=== PATIENT | female | born 1940 | race Caucasian/White ===

== ENCOUNTER → 2017-12-28 | Outpatient (CLI) | payer MEDICARE ==
[~2017-12-28] MED LIST: ASPI-816 PO; ATEN-1 PO; BACDS PO; BENZ200C38 PO; CEFU250 PO; FAMO-64 PO; GLY5 PO; HYDR-4309 PO; IBUP600T22 PO; LEVO50TA80 PO; LEVO750T25 PO; LISI-368 PO; LOM PO; LOR5/325 PO; LOR7.5/325 PO; METF-420 PO; METO-222 PO; METO-231 PO; NAP500 PO; PIOG45TA3 PO; RAN150 PO; SIMV-42 PO
--- NOTE | 2017-12-29 08:54 | RADIOLOGY IMAGING REPORT ---
FACILITY: [facility] PATIENT NAME: ROGERIO CORTES : [id number] MR: [id number] V: [id number] EXAM DATE: ORDERING PHYSICIAN: ANAMARIA BURKETT TECHNOLOGIST: Patsy Ramirez PROCEDURE:BILATERAL DIGITAL SCREENING MAMMOGRAM WITH CAD ASSISTED INTERPRETATION & 3D TOMOSYNTHESIS COMPARISON:None. INDICATIONS:screening FINDINGS: A small amount of fibroglandular tissue is seen throughout the breasts. The parenchymal pattern has remained stable allowing for difference in mammographic technique & patient positioning. There is no evidence of malignant appearing mass, malignant appearing calcifications or other secondary sign of malignancy in either breast. DIAGNOSTIC CATEGORY 1--NEGATIVE. RECOMMENDATIONS: ROUTINE MAMMOGRAM AND CLINICAL EVALUATION. IMPRESSION: BIRADS 1: Negative No significant abnormality is seen Dictated by: Jennifer Fernandez M.D. on 12/28/2017 at 16:27 Transcribed by: ADRIANA on 12/29/2017 at 8:23 Approved by: Jennifer Fernandez M.D. on 12/29/2017 at 8:53 [facility]
== END ==
LOC: MAMO 01:06
PROVIDERS: ATTEND Family Medicine
DX: Z12.31 Encounter for screening mammogram for malignant neoplasm of breast (principal)
CPT/HCPCS: 77063; 77067

== ENCOUNTER → 2018-01-13 | Outpatient (CLI) | payer MEDICARE ==
--- NOTE | 2018-01-13 16:46 | RADIOLOGY IMAGING REPORT ---
FACILITY: [facility] PATIENT NAME: Kate Almanzar : 1940 MR: [id number] V: [id number] EXAM DATE: ORDERING PHYSICIAN: BONNIE FATIMA TECHNOLOGIST: Location: [facility] Patient: Kate Almanzar : 1940 Visit/Account:[id number] Date of Sevice: 01/13/2018 Right lower extremity venous Doppler duplex ultrasound scan. HISTORY: Right leg swelling. COMPARISON: None. A color flow Doppler duplex ultrasound examination with spectral analysis was performed on the lower extremity. The common femoral vein, superficial femoral vein, and popliteal vein are normal. These ve ssels compress and augment normally. The upper portions of the trifurcation veins are unremarkable. P ortions of the deep veins of the calf are obscured. No intraluminal filling defects are identified to suggest acute thrombus in the deep venous system. Note that Doppler ultrasound is somewhat insensiti ve below the knee. A venous reflux study was not performed at this time. Edema is present in the sof t tissues of the right calf. IMPRESSION: Soft tissue edema. Otherwise negative for acute deep vein thrombosis. Report Dictated By: Baltazar Sandra MD at 01/13/2018 4:40 PM Report E-Signed By: Baltazar Sandra MD at 01/13/2018 4:43 PM WSN:[email or web address]
== END ==
LOC: US 11:22
PROVIDERS: ATTEND Internal Medicine Cardiovascular Disease
DX: R60.0 Localized edema (principal)

== ENCOUNTER → 2018-01-25 | Outpatient (CLI) | payer MEDICARE ==
--- NOTE | 2018-01-26 08:38 | RT STRESS TEST REPORT ---
FACILITY: [facility] [place] PATIENT NAME: ROGERIO CORTES : [id number] MR: [id number] V: [id number] EXAM DATE: ORDERING PHYSICIAN: ANAMARIA BURKETT TECHNOLOGIST: Juan M Acquisition Time: 2018-01-25 07:09:33 Total Exercise Time: 00:07:18 Test Indications: Syncope Medications: aspirin atorvastatin glimeplride levothyroxine lisinopriil omeprazole metformin metoprolol pramipexole pioglitazone Protocol: DOBUTAMINE Max HR: 136 BPM 93% of Pred: 145 BPM Max BP: 218/077 mmHG Max Work Load: 1.0 METS see report Confirmed by DILAN PARKINSON ([id number]) on 01/26/2018 8:37:59 AM Referred By: Anamaria Burkett Overread By: DILAN PARKINSON
--- NOTE | 2018-01-27 09:19 | RADIOLOGY IMAGING REPORT ---
[place] [facility] [place] NAME: ROGERIO CORTES : [id number] MR: [id number] V: [id number] EXAM DATE: ORDERING PHYSICIAN: BONNIE FATIMA TECHNOLOGIST: Josefina Celestin PROCEDURE: STRESS ECHOCARDIOGRAPHY COMPARISON: None. INDICATIONS: PAROXYSMAL ATRIAL FIBRILATION FINDINGS: After informed consent the patient was exercised using the Dobutamine protocol. She was informed of all of the risks & benefits including arrhythmias. Baseline EKG showed normal sinus rhythm. With exercise & Dobutamine no ST segment changes were noted. The patient had no complaints of any chest pains. The heartrate increased to 93% of predicted maximum heart rate. Blood pressure was elevated starting off at 202/95. No ST segment changes of ischemia. ECHOCARDIOGRAPH PORTION OF THE STRESS TEST: At rest the patient had normal left ventricular ejection fraction of approximately 60% with mild to moderate amount of mitral insufficiency & a trace of tricuspid, aortic & pulmonic insufficiency. No stenosis of any of the valves was noted. Estimated right ventricular systolic pressure was approximately 48mm Hg. Doppler examination of the mitral valve in diastole does reveal a normal pattern but there was reversal with Valsalva maneuver suggesting decreased diastolic function. CONCLUSION: 1. Normal hyperdynamic response to Dobutamine exercise with no left ventricular segmental wall motion abnormalities & low probability of ischemia. 2. Mild to moderate amount of mitral insufficiency. Trace of tricuspid, aortic & pulmonic insufficiency. Estimated right ventricular pressures were 48mm Hg indicating moderate pulmonary hypertension & increased right ventricular pressures. no stenosis of any of the valves. 3. A Grade 2 moderate decrease in diastolic function. 4. Increased blood pressure that started 202/95. Dictated by: Rita Mcleod M.D. on 01/26/2018 at 8:11 Transcribed by: OJ on 01/27/2018 at 7:31 Approved by: Rita Mcleod M.D. on 01/27/2018 at 9:17 [facility]
== END ==
LOC: RESP 02:22
PROVIDERS: ATTEND Internal Medicine Cardiovascular Disease
DX: I34.0 Nonrheumatic mitral (valve) insufficiency (principal); I36.1 Nonrheumatic tricuspid (valve) insufficiency; I37.1 Nonrheumatic pulmonary valve insufficiency
CPT/HCPCS: 93017; 93325; 93350

== ENCOUNTER → 2019-06-08 | Outpatient (CLI) | payer MEDICARE ==
[~2019-06-08] MED LIST changes: -ASPI-816 PO; +ASPI-870 PO; -HYDR-4309 PO; +HYDR-653 PO; -PIOG45TA3 PO; +PIOG45TA65 PO
== END ==
LOC: US 04:25
PROVIDERS: ATTEND Internal Medicine
DX: R94.31 Abnormal electrocardiogram [ECG] [EKG] (principal)
CPT/HCPCS: 93306